=== PATIENT | female | born 1935 | race Caucasian/White ===

== ENCOUNTER 2017-01-16 17:07 | Outpatient (CLI) | payer MEDICARE ==
[2015-02-16 13:38] VITALS: BP 130/50
[2017-01-16 18:07] LABS: eGFR (African) > 60; eGFR (Non-African) > 60
== END 2017-01-16 17:10 ==
LOC: LABRHC 17:07
PROVIDERS: ATTEND Family Medicine
DX: E03.9 Hypothyroidism, unspecified (principal); I10 Essential (primary) hypertension
CPT/HCPCS: 80053; 80061; 84443

== ENCOUNTER 2018-01-17 16:37 | Outpatient (CLI) | payer MEDICARE ==
[2015-02-16 13:38] VITALS: BP 130/50
[2018-01-17 17:04] LABS: eGFR (Non-African) > 60
== END 2018-01-17 16:40 ==
LOC: LABRHC 16:37
PROVIDERS: ATTEND Family Medicine
DX: I10 Essential (primary) hypertension (principal); E03.9 Hypothyroidism, unspecified
CPT/HCPCS: 36415; 80053; 80061; 84439; 84443; 84481